=== PATIENT | male | born 1945 | race Caucasian/White ===

== ENCOUNTER 2023-12-07 04:41 | Inpatient (IN) | payer MEDICARE ==
[~2023-12-07] VITALS: Ht 182.9 cm; Wt 113.8 kg
[2023-12-07 04:47] VITALS: BP 124/74
[2023-12-07] MEDS ORDERED: ATOR20 PO (05:00)
[2023-12-07] MEDS ORDERED: CARDURA2 M1 PO (05:01)
[2023-12-07] MEDS ORDERED: FURO40 PO (05:01)
[2023-12-07] MEDS ORDERED: POTA10T PO (05:02)
[2023-12-07] MEDS ORDERED: MAGNESIUM OXID500 MG PO (05:03)
[2023-12-07] MEDS ORDERED: Seroquel Xr50 MG PO (05:04)
[2023-12-07] MEDS ORDERED: SIME80CH PO (05:05)
[2023-12-07] MEDS ORDERED: AMLO5 PO (05:06)
[2023-12-07] MEDS ORDERED: Ondansetron HCl 2 MG / ML 2ML Vial IV PRN (05:15)
--- NOTE | 2023-12-07 06:07 | NUR ---
NOC SHIFT SUMMARY PT ADMITTED TO RM 355 A DIRECT TRANSFER AT 0510 VIA AMBULANCE FROM [facility]. HE ARRIVED ON A HEPARIN GTT BUT MD SAYS OK TO DISCONTINUE. HEPARIN GTT STOPPED. 3+ LE EDEMA, DYSPNEA ON EXERTION. ORIENTED TO ROOM AND FALL PRECAUTIONS. EDUCATION PROVIDED REGARDING HEART FAILURE EXACERBATION AND PLAN TO DIURESE. BED ALARM ON AND CALL LIGHT WITHIN REACH. PT DENIES ANY COMPLAINTS EXCEPT SOB WITH ANY ACTIVITY. HE HAS NOTIFIED HIS FAMILY THAT HE IS HERE.
[2023-12-07] MEDS ORDERED: Simethicone 80 MG Chew PO PRN (06:25)
[2023-12-07 07:51] VITALS: BP 124/88
[2023-12-07] MEDS ORDERED: Furosemide 10 MG / ML 2ML Vial IV SCH (09:00)
[2023-12-07] MEDS ORDERED: Enoxaparin 40 MG/0.4 ML SYR SC SCH (09:00)
[2023-12-07] MEDS ORDERED: Potassium Chloride 10 Meq Tablet SA PO SCH (09:00)
[2023-12-07] MEDS ORDERED: ELIQUIS2.5 MG PO (13:57)
[2023-12-07] MEDS ORDERED: Acetaminophen325 M1 PO (13:58)
[2023-12-07] MEDS ORDERED: Carvedilol12.5 MG PO (13:58)
--- NOTE | 2023-12-07 13:59 | NUR ---
RECEIVED CALL FROM LAB. TROP [id number]. CALLED DR GILLESPIE. PT ASYMPTOMATIC. NO NEW ORDERS.
--- NOTE | 2023-12-07 14:58 | NUR ---
THIS RN PROVIDING BREAK COVERAGE FOR PRIMARY RN.
[2023-12-07 15:42] VITALS: BP 127/81
--- NOTE | 2023-12-07 17:50 | NUR ---
PT PLEASANT TODAY. HE IS ALERT ORIENTED X3, SOME DETAILS HARD FOR HIM. , AGE, PRESIDENT, ALL OKAY, NOT SURE ON EXACT DATE IN NOVEMBER, DENIES PAIN, HAS BEEN QUITE SOB WITH ANY EXERTION. LUNGS CLEAR, BUT DIM T/O TODAY. HAS BEEN AMBULATING ABOUT ROOM. MIN ASST WITH FWW. WATCHING TV SITTING IN CHAIR AT THIS TIME. BED IN LOW POSITION, CALL LITE IN REACH, CALLS APPROP, BED ALARM ON FOR SAFETY AT SLEEP.
[2023-12-07 19:31] VITALS: BP 141/85
[2023-12-07] MEDS ORDERED: Atorvastatin 10 MG Tab PO SCH (21:00)
[2023-12-07] MEDS ORDERED: Apixaban 5 MG Tab PO SCH (21:00)
[2023-12-07] MEDS ORDERED: QUEtiapine Fumarate 50 MG TAB PO SCH (21:00)
[2023-12-07] MEDS ORDERED: Doxazosin Mesylate 2 MG Tab PO SCH (21:00)
[2023-12-08] MEDS ORDERED: Acetaminophen 325 MG TABLET PO SCH
[2023-12-08 02:05] VITALS: BP 136/78
[2023-12-08 04:48] LABS: BASOPHILS ABSOLUTE AUTO 0.03 K/mm3 (0.00-0.23); BASOPHILS PERCENT AUTO 0 % (0-2); EOSINOPHILS ABSOLUTE AUTO 0.18 K/mm3 (0.00-0.68); EOSINOPHILS PERCENT AUTO 2 % (0-6); Hematocrit 25.8 % (37.0-53.0); Hemoglobin 8.2 g/dL (13.5-17.5); IMMATURE GRAN ABSOLUTE AUTO 0.04 K/mm3 (0.00-0.10); IMMATURE GRAN PERCENT AUTO 0 % (0-1); LYMPHOCYTES ABSOLUTE AUTO 1.06 K/mm3 (0.84-5.20); LYMPHOCYTES PERCENT AUTO 11 % (21-46); MONOCYTES ABSOLUTE AUTO 0.95 K/mm3 (0.16-1.47); MONOCYTES PERCENT AUTO 10 % (4-13); Mean Corpuscular HGB 27.6 pg (26.0-34.0); Mean Corpuscular HGB Conc 31.8 g/dL (31.5-36.5); Mean Corpuscular Volume 87 fL (80-100); Mean Platelet Volume 9.5 fL (9.1-12.4); NEUTROPHILS ABSOLUTE AUTO 7.72 K/mm3 (1.96-9.15); NEUTROPHILS PERCENT AUTO 77 % (41-73); Platelet Count 282 K/mm3 (150-400); RDW Coefficient Variation 16.6 % (11.7-14.2); RDW Standard Deviation 52.6 fL (35.1-46.3); Red Blood Cell Count 2.97 M/mm3 (4.30-5.90); White Blood Cell Count 9.98 K/mm3 (4.00-11.30)
[2023-12-08 05:21] LABS: Albumin, Blood 2.7 g/dL (3.4-5.0); Albumin/Globulin Ratio 0.7 (0.8-1.8); Bilirubin, Total 0.5 mg/dL (0.1-1.0); Bun/Creatinine Ratio 16.8 (12.0-20.0); Calcium, Blood 8.1 mg/dL (8.5-10.1); Creatinine, Blood 1.85 mg/dL (0.60-1.20); Globulin, Blood 3.8 g/dL (2.2-4.0); Magnesium, Blood 1.9 mg/dL (1.6-2.4); Phosphorus, Blood 2.4 mg/dL (2.5-4.9); Potassium, Blood 3.1 mmol/L (3.5-5.5); Total Protein, Blood 6.5 g/dL (6.4-8.2)
--- NOTE | 2023-12-08 05:24 | NUR ---
SHIFT SUMMARY PT HAD EPISODES OF HACKING NON-PRODUCTIVE COUGH THROUGH NIGHT. SLEPT PEACEFULLY. HE REFUSED HIS MIDNIGHT DOSE OF TYLENOL BECAUSE HE WAS "SLEEPING JUST FINE". PT GOT UP TO WALK INTO HALLWAY APPROX. 0515 AND SKIN WAS PALE, AND HE HAD REMOVED HIS NC. THIS NURSE ESCORTED HIM BACK TO BED AND REPLACED NC FOR SUPPLEMENTAL O2 NEEDS. PT HAS POSITIONAL PAIN IN BLE. AFTER ADJUSTING POSITION, PT STATED PAIN WAS "PRETTY MUCH GONE". PT HAS BEEN PLEASANT AND COOPERATIVE WITH HIS CARE.
[2023-12-08 07:20] VITALS: BP 133/86
[2023-12-08] MEDS ORDERED: Carvedilol 6.25 MG Tab PO SCH (08:00)
[2023-12-08] MEDS ORDERED: Potassium Phosphate Dibasic 30 MM in Dextrose 5% 500 ML IV STA (08:44)
[2023-12-08] MEDS ORDERED: Potassium Chloride 20 MEQ TabCR PO ONE (09:00)
[2023-12-08 17:10] VITALS: BP 120/85
--- NOTE | 2023-12-08 17:56 | NUR ---
SHIFT SUMMARY: PT IS A&OX2-3/SBA ASSIST WITH FWW-CONFUSED AND FORGETFUL AT TIMES. HE RECEIVED A SHOWER TODAY, IS BEING DIURESED, AND NOW ON ROOMAIR. HE STILL BECOMES EXERTED WITH ACTIVITY, BUT MAINTAIN OXYGEN SATURATION GREATER THAN 92%. HE C/O ABD BLOATING AND PAIN IN HIS L THUMB AND INDEX FINGER; GAS X AND TYLENOL GIVEN ALONG WITH ICE PACK FOR FINGERS. HE IS IN BED, CALL LIGHT WITHIN REACH, NO SIGNS OR SYMPTOMS OF DISTRESS, PLAN OF CARE ONGOING.
[2023-12-08 19:22] VITALS: BP 117/66
[2023-12-09 03:11] VITALS: BP 114/74
--- NOTE | 2023-12-09 04:49 | NUR ---
SHIFT SUMMARY PT HAS BEEN KICKING BLANKETS OFF PERIODICALLY, THEN CONFUSION SETS IN AND HE FORGETS WHAT HAPPENED TO HIS BLANKETS. PT HAS BEEN PLEASANT AND COOPERATIVE WITH HIS CARE. MEDICATED PER EMAR.
[2023-12-09 05:15] LABS: Hematocrit 28.5 % (37.0-53.0); Mean Corpuscular HGB 27.6 pg (26.0-34.0); Mean Corpuscular HGB Conc 31.6 g/dL (31.5-36.5); Mean Corpuscular Volume 87 fL (80-100); Mean Platelet Volume 10.2 fL (9.1-12.4); Platelet Count 301 K/mm3 (150-400); RDW Coefficient Variation 16.5 % (11.7-14.2); RDW Standard Deviation 52.5 fL (35.1-46.3); Red Blood Cell Count 3.26 M/mm3 (4.30-5.90); White Blood Cell Count 11.35 K/mm3 (4.00-11.30)
[2023-12-09 05:49] LABS: Albumin, Blood 2.9 g/dL (3.4-5.0); Anion Gap 10 mmol/L (3-11); Blood Urea Nitrogen 24 mg/dL (8-24); Bun/Creatinine Ratio 14.5 (12.0-20.0); CO2, Blood 30 mmol/L (21-32); Calcium, Blood 8.2 mg/dL (8.5-10.1); Chloride, Blood 98 mmol/L (98-108); Creatinine, Blood 1.66 mg/dL (0.60-1.20); Glomerular Filtration Rate 41 (60-); Glucose, Blood 159 mg/dL (70-99); Magnesium, Blood 1.9 mg/dL (1.6-2.4); Phosphorus, Blood 2.8 mg/dL (2.5-4.9); Potassium, Blood 3.3 mmol/L (3.5-5.5); Sodium, Blood 135 mmol/L (136-145)
[2023-12-09 07:31] VITALS: BP 122/88
[2023-12-09] MEDS ORDERED: Furosemide 10 MG / ML 2ML Vial IV SCH (09:00)
[2023-12-09] MEDS ORDERED: Potassium Chloride 20 MEQ TabCR PO ONE (09:00)
[2023-12-09] MEDS ORDERED: Potassium Chl 20MEQ/Water100ML 100 ML IV STA (12:55)
[2023-12-09] MEDS ORDERED: NS 250 ML IV PRN (13:40)
[2023-12-09 15:12] VITALS: BP 123/91
--- NOTE | 2023-12-09 15:43 | NUR ---
SHIFT SUMMARY PT AWAKE DURING SHIFT REPORT. PLEASANT AND CO-OP WITH CARE. ADMITTED FOR CHF EXAC. PT RECEIVING IV LASIX. UP TO EOB ON HIS OWN TO EAT AND USE HIS COMPUTER. NO C/O. USING URINAL AT BS; VOIDING WELL. HX OF A-FIB; ON ELIQUIS. SOME MILD ALZ DEMENTIA NOTED. PT REPORTS LIVING AT [facility] IN [place]. DR GILLESPIE IN TO SEE PT AND DISCUSS PLAN OF CARE. NEW ORDERS PLACED. ABLE TO MAKE NEEDS KNOWN. CALL LT IN REACH.
[2023-12-09 19:25] VITALS: BP 114/83
[2023-12-10 02:54] VITALS: BP 116/76
[2023-12-10 04:57] LABS: Hemoglobin 8.6 g/dL (13.5-17.5); Mean Corpuscular HGB 27.2 pg (26.0-34.0); Mean Corpuscular HGB Conc 31.9 g/dL (31.5-36.5); Mean Corpuscular Volume 85 fL (80-100); Mean Platelet Volume 9.4 fL (9.1-12.4); Platelet Count 285 K/mm3 (150-400); RDW Coefficient Variation 16.3 % (11.7-14.2); RDW Standard Deviation 51.2 fL (35.1-46.3); Red Blood Cell Count 3.16 M/mm3 (4.30-5.90)
[2023-12-10 05:23] LABS: Albumin, Blood 2.8 g/dL (3.4-5.0); Anion Gap 11 mmol/L (3-11); Blood Urea Nitrogen 27 mg/dL (8-24); Bun/Creatinine Ratio 15.5 (12.0-20.0); CO2, Blood 28 mmol/L (21-32); Calcium, Blood 7.9 mg/dL (8.5-10.1); Chloride, Blood 102 mmol/L (98-108); Creatinine, Blood 1.74 mg/dL (0.60-1.20); Glomerular Filtration Rate 39 (60-); Glucose, Blood 137 mg/dL (70-99); Phosphorus, Blood 2.2 mg/dL (2.5-4.9); Potassium, Blood 3.8 mmol/L (3.5-5.5); Sodium, Blood 137 mmol/L (136-145)
--- NOTE | 2023-12-10 05:27 | NUR ---
SHIFT SUMMARY PT SLEPT WELL THROUGH NIGHT. THIS RN NOTING THE LONGEST STRETCHES OF UNINTERRUPTED SLEEP PT HAS HAD IN THREE NIGHTS. EDEMA IN BLE HAS DECREASED NOTICABLY. BREATHING DIFFICULTIES HAVE DECREASED, WITH LESS SOB ON EXURSION. PT CONTINUES TO BE PLEASANT AND COOPERATIVE WITH HIS CARE.
[2023-12-10 07:26] VITALS: BP 118/76
[2023-12-10] MEDS ORDERED: Potassium Phosphate Dibasic 20 MM in Dextrose 5% 500 ML IV STA (08:36)
--- NOTE | 2023-12-10 16:33 | NUR ---
PT DISCHARGED 0 WITH INSTRUCTIONS. RUBA HERE TO BILL HERE TO DRIVE PT HOME. WHEELCHAIR OUT TO CAR. BELONGINGS SENT HOME WITH PATIENT. MEDICATED WITH SIMETHACONE BEFORE DC FOR PT C/O GAS PAIN.
== END 2023-12-10 15:41 | disposition home health service (06) | DRG 280 ==
LOC: MEDS 04:42
PROVIDERS: Internal Medicine; ADMIT Internal Medicine
DX: I13.0 Hypertensive heart and chronic kidney disease with heart failure and stage 1 through stage 4 chronic kidney disease, or unspecified chronic kidney disease (principal); I50.33 Acute on chronic diastolic (congestive) heart failure; I21.A1 Myocardial infarction type 2; J96.01 Acute respiratory failure with hypoxia; I48.20 Chronic atrial fibrillation, unspecified; N18.9 Chronic kidney disease, unspecified; N40.1 Benign prostatic hyperplasia with lower urinary tract symptoms; E86.0 Dehydration; R33.8 Other retention of urine; E78.5 Hyperlipidemia, unspecified; G30.9 Alzheimer's disease, unspecified; F02.80 Dementia in other diseases classified elsewhere, unspecified severity, without behavioral disturbance, psychotic disturbance, mood disturbance, and anxiety; E87.6 Hypokalemia; K31.89 Other diseases of stomach and duodenum; E83.39 Other disorders of phosphorus metabolism; Z79.01 Long term (current) use of anticoagulants; Z79.899 Other long term (current) drug therapy; Z88.0 Allergy status to penicillin; Z95.2 Presence of prosthetic heart valve; R10.9 Unspecified abdominal pain
CPT/HCPCS: 36415; 71046; 74018; 80053; 80069; 83735; 83880; 84100; 84484; 85025; 85027; 93306; 94760; 96372; 96374; 96375; 96376; 97110; 97116; 97162; A9270; G0378; J1650; J1940; J3480; J7050; J7060